=== PATIENT | male | born 2000 | race Hispanic/Latino ===

== ENCOUNTER 2019-07-07 02:45 | Inpatient (IN) | payer BC ==
[2019-07-07] MEDS ORDERED: Ondansetron PF 4 MG/2 ML Vial ONE (03:14)
[2019-07-07 03:43] LABS: ALT (SGPT) 20 U/L (8-55); AST (SGOT) 31 U/L (5-34); Alkaline Phosphatase 81 U/L (Less than 750); Anion Gap 31 mmol/L (10-20); BUN (Urea Nitrogen) 21 mg/dL (8.9-20.6); Bilirubin, Total 1.1 mg/dL (0.2-1.2); CK (CPK) 646 U/L (30-200); Calc. Creatinine Clearance 0 mL/min (70-130); Carbon Dioxide 19 mmol/L (22-29); Chloride 92 mmol/L (98-107); Estimated GFR-MDRD 17; Glucose 160 mg/dL (70-105); Lipase 13 U/L (8-78); Potassium 4.5 mmol/L (3.5-5.1); Protein, Total 10.3 g/dL (6.0-8.3); Sodium 137 mmol/L (136-145)
[2019-07-07 03:44] LABS: Albumin Greater than 6.2 g/dL (3.5-5.0); Globulin 4.1 g/dL (2.4-3.5)
[2019-07-07 03:45] LABS: Calcium 12.5 mg/dL (7.8-10.44)
[2019-07-07 03:49] LABS: Mean Corpuscular HGB CONC 36.7 g/dL (32.0-36.0); Mean Corpuscular Hemoglobin 32.9 pg (25.0-35.0); Mean Corpuscular Volume 89.7 fL (78.0-98.0); Mean Platelet Volume 8.1 fL (7.4-10.4); Platelet Count 361 thou/uL (130-400); RBC Distribution Width 11.8 % (11.5-14.5); Red Blood Cell (RBC) Count 6.38 mill/uL (4.00-5.20); White Blood Cell (WBC) Count 22.7 thou/uL (4.8-10.8)
[2019-07-07 03:52] LABS: Band 1 % (5-11); Lymphocytes 5 % (28-48); MDiff Complete? YES; Monocytes 5 % (0-4); Neutrophil 88 % (31-61); Reactive Lymphocytes 1 % (0-10)
[2019-07-07 05:20] LABS: Bilirubin Small (Negative); Blood, Urine Large (Negative); Clarity Cloudy (Clear); Glucose, Urine (Dipstick) Negative (Negative); Leukocyte Negative (Negative); Nitrite Negative (Negative); Protein, Urine (Dipstick) > or equal to 300 mg/dL (Neg-Trace); Urobilinogen 0.2 mg/dL (Less than 2)
[2019-07-07 05:22] LABS: Bacteria/HPF Rare-Few HPF (None Seen); Squamous Epithelial 0-3 HPF (0-3); Transitional Epithelial 0-3 HPF (None Seen)
--- NOTE | 2019-07-07 07:36 | CT ---
CT ABDOMEN AND PELVIS WITHOUT IV CONTRAST: Date: 07/07/19 INDICATION: History of vomiting and abdominal pain; left-sided abdominal pain. FINDINGS: The lack of IV contrast limits evaluation of the solid organs of the abdomen. Lung bases are clear. Unopacified liver, pancreas, adrenal glands, kidneys, and spleen reveal no acute abnormality. No cari l or ureteral calculus is noted. No hydronephrosis is seen. No free fluid or enlarged lymph nodes are evident. There is a normal retrocecal appendix. Small bowel is normal caliber. The bladder, rectum, and perire ctal soft tissues are unremarkable appearing. No acute osseous abnormality is evident. IMPRESSION: No acute CT abnormality demonstrated within the limitations of this study. POS: BH
[2019-07-07 09:06] LABS: Anion Gap 12 mmol/L (10-20)
[2019-07-07 09:17] LABS: BUN (Urea Nitrogen) 16 mg/dL (8.9-20.6); Calc. Creatinine Clearance 0 mL/min (70-130); Carbon Dioxide 26 mmol/L (22-29); Chloride 107 mmol/L (98-107); Estimated GFR-MDRD 50; Glucose 101 mg/dL (70-105); Potassium 3.7 mmol/L (3.5-5.1); Sodium 141 mmol/L (136-145)
[2019-07-07 09:18] LABS: Calcium 8.1 mg/dL (7.8-10.44)
[2019-07-07 10:19] LABS: Lactic Acid 0.9 mmol/L (0.5-2.2)
[2019-07-07 10:23] LABS: #Basophils 0.1 thou/uL (0.0-0.2); #Monocytes 1.3 thou/uL (0.11-0.59); #Neutrophils 13.8 thou/uL (1.40-6.50); %Basophils 0.3 % (0.0-1.0); %Eosinophils 0.1 % (0.0-10.0); %Lymphocytes 11.4 % (28.0-48.0); %Monocytes 7.6 % (0.0-4.0); %Neutrophils 80.6 % (31.0-61.0); Hemoglobin 15.2 g/dL (14.0-18.0); Mean Corpuscular HGB CONC 35.7 g/dL (32.0-36.0); Mean Corpuscular Hemoglobin 32.8 pg (25.0-35.0); Mean Platelet Volume 7.8 fL (7.4-10.4); Platelet Count 258 thou/uL (130-400); Red Blood Cell (RBC) Count 4.65 mill/uL (4.00-5.20); White Blood Cell (WBC) Count 17.2 thou/uL (4.8-10.8)
[2019-07-07 10:24] LABS: Magnesium 2.2 mg/dL (1.7-2.2)
[2019-07-07] MEDS ORDERED: Sodium Chloride 0.9% 1,000 ML IV SCH (12:45)
[2019-07-07] MEDS ORDERED: Ondansetron ODT 4 MG TAB PO PRN ×2 (12:46→13:58)
[2019-07-07] MEDS ORDERED: Acetaminophen 325 MG TAB PO PRN (12:46)
[2019-07-07] MEDS ORDERED: Ondansetron PF 4 MG/2 ML Vial IVP PRN ×2 (12:46→13:58)
[2019-07-07 12:49] VITALS: BMI 23.3
[2019-07-07 15:46] LABS: Albumin 3.8 g/dL (3.5-5.0); Anion Gap 11 mmol/L (10-20); BUN (Urea Nitrogen) 13 mg/dL (8.9-20.6); BUN/Creatinine Ratio 10.48; CK (CPK) 936 U/L (30-200); Calc. Creatinine Clearance 94 mL/min (70-130); Calcium 8.5 mg/dL (7.8-10.44); Carbon Dioxide 24 mmol/L (22-29); Chloride 108 mmol/L (98-107); Estimated GFR-MDRD 74; Glucose 94 mg/dL (70-105); Phosphorus 2.8 mg/dL (2.3-4.7); Potassium 3.9 mmol/L (3.5-5.1); Sodium 139 mmol/L (136-145)
[2019-07-07] MEDS: Sodium Chloride 0.9% 1,000 ML IV SCH (19:32)
--- NOTE | 2019-07-07 20:08 | HP ---
PRIMARY CARE PHYSICIAN: None. CHIEF COMPLAINT: General malaise, weakness, and vomiting. HISTORY OF PRESENT ILLNESS: Mr. 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 The patient states he was well in himself until yesterday. He had been working outside in the heat and then went to have lunch with his mother. Immediately after he began to feel unwell. He attempted to lay down and suddenly began to experience cramping in his abdomen. States that it became rigid and also had cramping in the bilateral legs. He began to vomit excessively. This prompted him to seek medical attention and was brought to local ER. He was seen at [facility] ER where he underwent laboratory studies that were notable for severe SACHIN. He had a creatinine of 4.36, BUN of 21, and a GFR of 17. He was noted to be hypercalcemic with a calcium level of 12.5. LFTs were unremarkable. His CK was elevated at 646, and his white blood count was 22.7, hemoglobin was 21, felt to be associated with hemoconcentration from severe dehydration. The patient was started on IV fluids and given a total of 5 L. He received Zofran for nausea and vomiting. The patient states he has had no further episodes of nausea and vomiting since being seen in the ER. He also underwent a CT abdomen and pelvis, which showed no acute CT abnormality. There was no hydronephrosis, renal or ureteral calculi and kidneys appeared abnormal. At present, the patient states he continues to feel significantly better than when he first came in. He is no longer experiencing cramping, but feels less sore in his back and legs from muscle cramping he was experiencing and retching. He denies having any chest pain, palpitations, or shortness of breath. Denies having any headaches or dizziness. Denies any loose stools. The patient states he has not had much urinary output since this morning when it was so dark. Currently receiving IV fluids at 150 mL an hour. Repeat laboratory studies have been done and have shown normalization of the calcium, shown improvement in the white count and significant improvement in his renal function with a GFR of 50 and creatinine of 1.76 with a BUN of 16. Electrolytes within normal range. His CK however is elevated at 795. PAST MEDICAL HISTORY: None. PAST SURGICAL HISTORY: Previous surgery to his right arm following a fracture. SOCIAL HISTORY: Reports smoking marijuana, but has not done so in the last several days. Denies any tobacco use. Denies any illicit drug use. He lives with his parents. ALLERGIES: NO KNOWN DRUG ALLERGIES. CURRENT MEDICATIONS: None. PHYSICAL EXAMINATION: GENERAL: The patient appears well developed, well nourished, is in no acute distress. VITAL SIGNS: Temperature 98.3, pulse 65, respirations 18, O2 saturation 96% on room air, and blood pressure 116/65. HEENT: Normocephalic and atraumatic. Pupils are equal, round, and reactive to light. Sclerae icterus. Oropharynx is clear. NECK: Supple. No lymphadenopathy. LUNGS: Clear to auscultation bilaterally without any wheezes, rales, or rhonchi. CARDIAC: Regular rate and rhythm. ABDOMEN: Soft, nontender, and nondistended. Normoactive bowel sounds present. EXTREMITIES: No lower limb swelling or edema. NEUROLOGIC: Alert and oriented x3. SKIN: Without rash or jaundice. INVESTIGATIONS: As mentioned above in HPI. IMPRESSION AND PLAN: Mr. Kramer is a pleasant 18-year-old gentleman who is presenting with severe dehydration/heat exhaustion after working outside in the heat. 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 He is being referred due to mild rhabdomyolysis and severe acute kidney injury. He has received 5 L of IV fluids at [facility] ER. He continues to receive normal saline at 150 mL an hour. He has not had much urinary output; however, renal function continues to improve. We will recheck renal function as well as CK and electrolytes. The patient will be kept overnight for monitoring. Overall, he is feeling significantly better at this time. He has no comorbidities. The patient's case was discussed with Dr. Quezada who agrees with plan of care as described above. Full code status. His surrogate decision maker is his mother, Sarah Kramer. Job ID: [id number]
[2019-07-07] MEDS: Famotidine/PF 20 mg/2ml Vial SLOW IVP SCH (20:41)
[2019-07-08] MEDS: Sodium Chloride 0.9% 1,000 ML IV SCH ×2 (02:05→08:48)
[2019-07-08 04:38] LABS: #Eosinphils 0.1 thou/uL (0.0-0.7); #Lymphocytes 2.2 thou/uL (1.20-3.40); #Monocytes 0.6 thou/uL (0.11-0.59); #Neutrophils 7.6 thou/uL (1.40-6.50); %Basophils 0.2 % (0.0-1.0); %Eosinophils 1.1 % (0.0-10.0); %Lymphocytes 20.9 % (28.0-48.0); %Monocytes 5.8 % (0.0-4.0); %Neutrophils 72.1 % (31.0-61.0); Hemoglobin 13.6 g/dL (14.0-18.0); Mean Corpuscular HGB CONC 35.5 g/dL (32.0-36.0); Mean Corpuscular Volume 95.9 fL (78.0-98.0); Platelet Count 220 thou/uL (130-400); White Blood Cell (WBC) Count 10.5 thou/uL (4.8-10.8)
[2019-07-08 04:43] LABS: Anion Gap 8 mmol/L (10-20); BUN (Urea Nitrogen) 12 mg/dL (8.9-20.6); CK (CPK) 788 U/L (30-200); Calc. Creatinine Clearance 145 mL/min (70-130); Calcium 8.5 mg/dL (7.8-10.44); Carbon Dioxide 25 mmol/L (22-29); Chloride 109 mmol/L (98-107); Estimated GFR-MDRD Greater than 90; Glucose 89 mg/dL (70-105); Potassium 4.2 mmol/L (3.5-5.1); Sodium 138 mmol/L (136-145)
[2019-07-08] MEDS: Famotidine/PF 20 mg/2ml Vial SLOW IVP SCH (08:50)
[2019-07-08 11:59] VITALS: BP 114/59; TEMP 98
--- NOTE | 2019-07-09 03:07 | DIS ---
DATE OF ADMISSION: 07/07/2019 DATE OF DISCHARGE: 07/08/2019 PRIMARY CARE PROVIDER: Dr. Leon Sweet. DISCHARGE DIAGNOSES: 1. Acute kidney injury. 2. Rhabdomyolysis. 3. Dehydration. CONDITION OF PATIENT ON THE DAY OF DISCHARGE: Stable. I assessed Mr. Kramer on the day of discharge. He denies any chest pain or shortness of breath. Vital signs are stable. S1 and S2 are heard, regular. Lungs are clear to auscultation bilaterally. DISCHARGE MEDICATIONS: None. FOLLOWUP APPOINTMENTS: The patient is advised to follow up with primary care provider in 3 to 5 days' time. HOSPITAL COURSE: Mr. Kramer is a pleasant 18-year-old gentleman, who was admitted to [facility] for rhabdomyolysis and acute kidney injury on 07/07/2019. Please refer to Ms. Lazo's history and physical note dated 07/07/2019, for further details. He improved with intravenous fluids. Renal function normalized by 07/08/2019. His CK is trending down, 788 on the day of discharge. He is advised to maintain good oral fluid intake and to have his renal function checked through his primary care provider's office. Many thanks for allowing me to participate in Mr. Kramer's case. Please feel free to contact me with any questions or concerns. DISCHARGE DESTINATION: Home. TIME SPENT: Total amount of time spent coordinating this discharge: 31 minutes. Job ID: [id number]
== END 2019-07-08 12:50 | disposition home or self-care (01) | DRG 683 ==
LOC: SCSER 02:45 → ERHOLD 04:05 → ONC 12:16
PROVIDERS: ADMIT Internal Medicine; ATTEND Internal Medicine
DX: N17.9 Acute kidney failure, unspecified (principal); M62.82 Rhabdomyolysis; E86.0 Dehydration
CPT/HCPCS: 36415; 36416; 74176; 80048; 80053; 81003; 81015; 82550; 83605; 83690; 83735; 83970; 84145; 85025; 93005; 96361; 96374; J2405; S0028